=== PATIENT | male | born 1960 | race Caucasian/White ===

== ENCOUNTER 2016-12-31 17:30 | Emergency (ER) | payer MEDICARE, MEDICAID ==
[~2016-12-31] VITALS: Ht 182.9 cm; Wt 81.6 kg
[2016-12-31 19:28] VITALS: BP 141/115
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
--- OUTSIDE RECORDS SUMMARY | 2017-01-09 09:08 | External Medical Summary Rpt | CCD ---
Author Author , HERNANDO VILLAGOMEZ Address Unknown Phone [email or web address] Care Team Providers Care Perforator Typist Name Role Phone AUSTYN AND, Unavailable Unavailable KAMILA ARANA, Unavailable Unavailable KAMILA KENT JR. DAN, Unavailable Unavailable JR. SAIDA KENT [facility] Unavailable Unavailable MEDICINE, [facility] MED[facility] Unavailable Unavailable & INTER, [facility] & INTER [facility] Unavailable Unavailable MEDICAL CENT[facility], [facility], Unavailable Unavailable [facility] Unavailable Unavailable HOSPITA, [facility] CHA GORDILLO, CHA Unavailable Unavailable DUY CHA GORDILLO, CHA Unavailable Unavailable DUY CABRAL, CAROL Unavailable Unavailable JR CABRAL [facility] SRI, Unavailable Unavailable [facility] SRI [facility], [facility] Unavailable Unavailable [facility] Un[facility] Unavailable Unavailable SERVICES, [facility], Unavailable Unavailable [facility], Unavailable Unavailable [facility] Purpose Continuity of Care Document - 09-15-2007 through 2016 Problems Code Diagnosis DOS Provider Status 4019 UNSPECIFIED 01-29-2013 [facility] HYPERTENSIO SERVICES N 6826 CELLULITIS 01-29-2013 [facility] AND ABSCESS EMERGENCY OF LEG SERVICES EXCEPT FOOT 8910 OPEN WOUND 01-29-2013 [facility] KNEE EMERGENCY LEG&ANK SERVICES WITHOUT MENTION COMP V5832 ENCOUNTER 01-29-2013 [facility] FOR REMOVAL EMERGENCY OF SUTURES SERVICES 91716 TRAUMATIC 06-30-2012 [facility]THROPATHY SERV , FOREARM [facility]OUND[facility] 14230 EFFUSION OF 06-30-[address] [facility] EMERGENCY ROOM JOINT 46748 UNSPECIFIED 06-30-2012 [facility] ENTHESOPATH [facility] Y OF ELBOW V5489 OTHER 06-30-2012 [facility] AFTERCARE 3542 LESION OF 06-18-2012 [facility] ULNAR NERVE SERV [facility] 11173 UNSPECIFIED 06-18-2012 [facility] ARTHROPATHY , UPPER ARM 98579 LOOSE BODY 06-18-2012 [place] [facility] [place] UPPER SERV ARM JOINT [facility] 07796 STIFFNESS 06-18-2012 [facility] NEC UPPER ARM 46466 OTHER 06-18-2012 [place] [facility] SYNOVITIS SERV AND FOUNDATIO TENOSYNOVIT IS 4011 ESSENTIAL 06-05-2012 [facility] HYPERTENSIO INTERNAL N, BENIGN MEDICINE V7284 UNSPECIFIED 06-05-2012 [facility] PRE-OPERATI MEDICINE VE EXAMINATION 7296 RESIDUAL 05-05-2012 [facility] KESSLERS FOREIGN BODY IN SOFT TISSUE 7242 LUMBAGO 04-28-2012 [facility] MEDICINE 27717 LOC 12-23-2011 [facility] S NOT SPEC PRIM/SEC UPPER ARM 7295 PAIN IN 12-23-2011 [facility] TISSUES OF LIMB 87469 DISORDER OF 12-23-2011 [facility] BONE AND SERV CARTILAGE [facility]OUND[facility] UNSPECIFIED 93123 PAIN IN 11-26-2011 [facility] JOINT, RADIOLOGY UPPER ARM 87358 PAIN IN 11-26-2011 [facility] OTHER COMMUNITY SPECIFIED HOSPITA SITES V816 SCREENING 11-26-2011 [facility] OTHER&UNSPE PEDIATRICS C & INTER GENITOURINA RY CONDITION 61949 UNSPECIFIED 11-19-2011 [facility] SENSORINEUR AL HEARING LOSS 97065 HEAD 11-19-2011 [facility] UNSPECIFIED Procedures Procedure DOS Code Location Performer Comment SUSCEPTIB 72182 CYDNEY LAMAS LTY STDY 3 REGIONAL REGIONAL [facility]TIMICRB [facility] MICRO/AGA R DILUTJ SMR PRIM 27833 [facility] LAMAS SRC 3 REGIONAL REGIONAL GRAM/GIEM MEDICAL MEDICAL SA STAIN CENTE JUSTEN BCT FUNGI/AMI L CUL BACT 42284 CYDNEY LAMAS XCPT 3 REGIONAL [facility] URINE MEDICAL MEDICAL BLOOD/STO CENTCurly CAMPUZANO OL AEROBIC ISOL CUL BACT 85768 CYDNEY LAMAS AEROBIC 3 REGIONAL REGIONAL ADDL MEDICAL MEDICAL METHS CENTE JUSTEN DEFINITIV E EA ISOL RADIOLOGI 38683 [facility] [place] PAKO C 3 RADIOLOGY DINO EXAMINATI ON TIBIA & FIBULA 2 VIEWS RADEX 82383 [facility] Y [facility] MINIMUM 3 VIEWS NEUROPLAS 95443 [place] KAMINENI TY 3 MEDICAL SRI &/TRANSPO SERV SITION FOUNDATIO ULNAR NERVE ELBOW INJECTION J2405 [facility] 3 Y [facility] HCL PER 1 MG PARTIAL 04321 [facility] EXCISION 3 Y Y BONE [facility] OLECRANON PROCESS INJECTION J0360 [facility] 3 Y Y HYDRALAZI [facility] NE HCL UP TO 20 MG INJECTION J0690 [facility] 3 Y Y CEFAZOLIN [facility] SODIUM 500 MG INJECTION J2250 [facility] 3 Y Y MIDAZOLAM [facility] HCL PER 1 MG PARTIAL 89070 [facility] EXCISION 3 Y Y BONE [facility] HUMERUS INJECTION J1170 [facility] 3 Y Y HYDROMORP [facility] MYRNA UP TO 4 MG RINGERS J7120 [facility] LACTATE 3 Y Y INFUSION [facility] UP TO 1000 CC EXCISION 11417 [facility] RADIAL 3 Y Y HEAD [facility] ARTHROSCO 71269 [facility] ELBOW 3 Y Y SURGICAL [facility] W/REMOVAL LOOSE/FB ARTHROSCO 47784 [facility] ELBOW 3 Y Y SURGICAL [facility] DEBRIDEME NT EXTENSIVE INJECTION J2710 [facility] 3 Y Y NEOSTIGMI [facility] NE METHYLSUL FATE UP TO 0.5 MG INJECTION J3010 [facility] FENTANYL 3 Y Y CITRATE [facility] 0.1 MG INFUSION J7030 [facility] NORMAL 3 Y Y SALINE [facility] SOLUTION 1000 CC ECG 70576 KBSONJA BEITING, ROUTINE 3 INTERNAL JR. SAIDA ECG MEDICINE W/LEAST 12 LDS W/I&R ECG 87495 [place] DAISY CH[facility] ROUTINE 2 MEDICAL ECG SERV W/LEAST FOUNDATIO 12 LDS I&R ONLY RADEX 12509 [facility] ELBOW 2 Y Y COMPLETE [facility] MINIMUM 3 VIEWS COLLECTIO 62914 COLE MOOREAU N VENOUS 2 AND BLOOD PEDIATRIC VENIPUNCT S & INTER URE RADEX 79819 [facility] ELBOW 2 N N [facility] MINIMUM 3 HOSPITA HOSPITA VIEWS ECG 60958 COLE ZAMAN ROUTINE 2 AND ECG PEDIATRIC W/LEAST S & INTER 12 LDS W/I&R COMPRE 46067 [facility] AUDIOMETR 2 Y Y Y [facility] THRESHOLD EVAL SP RECOGNIJ TYMPANOME 90341 [facility] TRY 2 Y Y HOSPITAL HOSPITAL Encounters Encounter Start End Date Code Location Performer Type Date EMERGENCY 55573 CY[facility]NEY 3 3 [facility] T [facility]ISIT [facility] CYDNEY - 3 3 [facility] [address] [facility] UN[facility]ERSIT - 3 3 Y [facility] T OFFICE 86043 COLE KENT OUTPATIEN 3 3 INTERNAL JR. SAIDA T VISIT MEDICINE 15 MINUTES OFFICE 16948 [facility] EUBANKS OUTPATIEN 3 3 DUYChad GORDILLO T NEW 30 MINUTES OFFICE 34312 COLE KENT, OUTPATIEN 3 3 INTERNAL JR. SAIDA T VISIT MEDICINE 25 MINUTES [facility] [address] [facility] [place] [address] 2 N [facility] HOSPITA OFFICE 26344 COLE ZAMAN OUTPATIEN 2 2 AND T NEW 30 PEDIATRIC MINUTES S & INTER HOSPITAL UNIVERSIT - 2 2 Y [facility] T OFFICE 73282 RONALD MEDINA JR OUTPATIEN 2 2 MEDICAL RAL T NEW 30 SERV MINUTES [facility] N OFFICE 81625 [facility] BE[facility], OUTPATIEN 8 8 INTERNAL KAMILA Vizcaino T VISIT MEDICINE 15 GROUP MINUTES [facility] OFFICE 67071 BLUESONJA BEITING, OUTPATIEN 8 8 INTERNAL KAMILA Vizcaino T VISIT MEDICINE 15 GROUP MINUTES [facility]
--- OUTSIDE RECORDS SUMMARY | 2017-01-09 09:08 | External Medical Summary Rpt | CCD ---
Author Author , HERNANDO VILLAGOMEZ Address Unknown Phone [email or web address] Care Team Providers Care Adult Basic Education Instructor Name Role Phone AUSTYN AND, Unavailable Unavailable KAMILA ARANA, Unavailable Unavailable KAMILA KENT JR. DAN, Unavailable Unavailable JR. SAIDA KENT [facility] Unavailable Unavailable MEDICINE, [facility] INTER[facility] MEDICINE [facility] Unavailable Unavailable & INTER, [facility] & INTER [facility] Unavailable Unavailable [facility]ICAL CENT[facility], [facility], Unavailable Unavailable [facility] Unavailable Unavailable HOSPITA, [facility] CHA GORDILLO, CHA Unavailable Unavailable DUY CHA GORDILLO, CHA Unavailable Unavailable DUY CABRAL, CAROL Unavailable Unavailable JR CABRAL KAMINEULICES SRI, Unavailable Unavailable KAMINEULICES SRI [facility]Y [facility], [facility] Unavailable [facility]available [facility] Un[facility] Unavailable [facility]available SERVICES, [facility], Unavailable Unavailable [facility], Unavailable Unavailable [facility] Purpose Continuity of Care Document - 09-15-2007 through 2016 Problems Code Diagnosis DOS Provider Status 4019 UNSPECIFIED 01-29-2013 [facility] HYPERTENSIO SERVICES N 6826 CELLULITIS 01-29-2013 [facility] AND ABSCESS EMERGENCY OF LEG SERVICES EXCEPT FOOT 8910 OPEN WOUND 01-29-2013 [facility] KNEE [facility]ERGENCY LEG&ANK SERVICES WITHOUT MENTION COMP V5832 ENCOUNTER 01-29-2013 [facility] FOR REMOVAL EMERGENCY OF SUTURES SERVICES 26740 TRAUMATIC 06-30-2012 [place] MEDICAL ARTHROPATHY SERV , FOREARM FOUNDATIO 16913 EFFUSION OF 06-30-2012 [facility] JOINT 85354 UNSPECIFIED 06-30-2012 [place] [facility] SERV ENTHESOPATH FOUNDAT[facility] Y OF ELBOW V5489 OTHER 06-30-2012 [facility] AFTERCARE 3542 LESION OF 06-18-2012 [place] [facility]ICAL ULNAR NERVE SERV [facility]OUND[facility] 31017 UNSPECIFIED 06-18-2012 [facility] ARTHROPATHY , UPPER ARM 31893 LOOSE BODY 06-18-2012 [place] [facility] [place] UPPER SERV ARM JOINT [facility]OUNDAT[facility] 13226 STIFFNESS 06-18-2012 [facility] NEC UPPER ARM 97572 OTHER 06-18-2012 [place] [facility] SYNOVITIS SERV AND FOUNDATIO TENOSYNOVIT IS 4011 ESSENTIAL 06-05-2012 [facility] HYPERTENSIO INTERNAL N, BENIGN MEDICINE V7284 UNSPECIFIED 06-05-2012 [facility] INTERNAL PRE-OPERATI MEDICINE VE EXAMINATION 7296 RESIDUAL 05-05-2012 [facility] KESSLERS FOREIGN BODY IN SOFT TISSUE 7242 LUMBAGO 04-28-2012 [facility] INTERNAL MEDICINE 57651 LOC 12-23-2011 [place] [facility] S NOT SPEC PRIM/SEC UPPER ARM 7295 PAIN IN 12-23-2011 [facility] TISSUES OF LIMB 58424 DISORDER OF 12-23-2011 [place] MEDICAL BONE AND SERV CARTILAGE [facility]OUND[facility] UNSPECIFIED 05931 PAIN IN 11-26-2011 [facility] [place] JOINT, RADIOLOGY UPPER ARM 85877 PAIN IN 11-26-2011 [place] JOINT OTHER COMMUNITY SPECIFIED HOSPITA SITES V816 SCREENING 11-26-2011 [facility] OTHER&UNSPE PEDIATRICS C & INTER GENITOURINA RY CONDITION 88528 UNSPECIFIED 11-19-2011 [facility] SENSORINEUR AL HEARING LOSS 18228 HEAD 11-19-2011 [place] [facility], [facility] UNSPECIFIED Procedures Procedure DOS Code Location Performer Comment SUSCEPTIB 92703 CYDNEY LAMAS LTY STDY 3 REGIONAL REGIONAL ANTIMICRB [facility] CAM[facility] MICRO/AGA R DILUTJ SMR PRIM 96041 CYDNEY LAMAS SRC 3 REGIONAL REGIONAL GRAM/GIEM MEDICAL MEDICAL SA STAIN CENTE JUSTEN BCT FUNGI/AMI L CUL BACT 81063 CYDNEY LAMAS XCPT 3 REGIONAL [facility] URINE MEDICAL MEDICAL BLOOD/STO CENTCurly CAMPUZANO OL AEROBIC ISOL CUL BACT 63643 CYDNEY LAMAS AEROBIC 3 REGIONAL REGIONAL ADDL MEDICAL MEDICAL METHS CENTE JUSTEN DEFINITIV E EA ISOL RADIOLOGI 35865 [facility] [place] PAKO C 3 RADIOLOGY DINO EXAMINATI ON TIBIA & FIBULA 2 VIEWS RADEX 75816 [facility] MINIMUM 3 VIEWS NEUROPLAS 85873 [place] KAMINENI TY 3 MEDICAL SRI &/TRANSPO SERV SITION FOUNDATIO ULNAR NERVE ELBOW INJECTION J2405 [facility] 3 Y [facility] ON HCL PER 1 MG PARTIAL 82761 [facility] EXCISION 3 Y Y BONE [facility] OLECRANON PROCESS INJECTION J0360 [facility] 3 Y Y HYDRALAZI [facility] NE HCL UP TO 20 MG INJECTION J0690 [facility] 3 Y Y CEFAZOLIN [facility] SODIUM 500 MG INJECTION J2250 [facility] 3 Y Y MIDAZOLAM [facility] HCL PER 1 MG PARTIAL 52318 [facility] EXCISION 3 Y Y BONE [facility] HUMERUS INJECTION J1170 [facility] 3 Y Y HYDROMORP [facility] MYRNA UP TO 4 MG RINGERS J7120 [facility] LACTATE 3 Y Y INFUSION [facility] UP TO 1000 CC EXCISION 46270 [facility] RADIAL 3 Y Y HEAD [facility]OSPITAL ARTHROSCO 48534 [facility] ELBOW 3 Y Y SURGICAL [facility] W/REMOVAL LOOSE/FB ARTHROSCO 93909 [facility] EL[place]OW 3 Y Y SURGICAL [facility] DEBRIDEME NT EXTENSIVE INJECTION J2710 [facility] 3 Y Y NEOSTIGMI [facility] NE METHYLSUL FATE UP TO 0.5 MG INJECTION J3010 [facility] FENTANYL 3 Y Y CITRATE [facility] 0.1 MG INFUSION J7030 [facility] NORMAL 3 Y Y SALINE [facility] SOLUTION 1000 CC ECG 16352 KBSONJA BEITING, ROUTINE 3 INTERNAL JR. SAIDA ECG MEDICINE W/LEAST 12 LDS W/I&R ECG 41948 [place] DAISY CHI ROUTINE 2 MEDICAL ECG SERV W/LEAST FOUNDATIO 12 LDS I&R ONLY RADEX 60865 [facility] ELBOW 2 Y Y COMPLETE [facility] MINIMUM 3 VIEWS COLLECTIO 43442 [facility] MOOREAU N VENOUS 2 AND BLOOD PEDIATRIC VENIPUNCT S & INTER URE RADEX 83949 [facility] ELBOW 2 N N [facility] MINIMUM 3 HOSPITA HOSPITA VIEWS ECG 17782 COLE ZAMAN ROUTINE 2 AND ECG PEDIATRIC W/LEAST S & INTER 12 LDS W/I&R COMPRE 14814 [facility] AUDIOMETR 2 Y Y Y [facility] HOSPITAL THRESHOLD EVAL SP RECOGNIJ TYMPANOME 05514 [facility] TRY 2 Y Y HOSPITAL HOSPITAL Encounters Encounter Start End Date Code Location Performer Type Date EMERGENCY 23586 [facility] 3 3 [facility] T VISIT [facility] CYDNEY - 3 3 [facility] T [facility] 3 3 Y [facility] UNIVERSIT - 3 3 Y [facility] T OFFICE 45535 COLE KENT OUTPATIEN 3 3 INTERNAL JR. SAIDA T VISIT MEDICINE 15 MINUTES OFFICE 69924 [facility] EUBANKS OUTPATIEN 3 3 DUYChad GORDILLO T NEW 30 MINUTES OFFICE 43763 COLE KENT, OUTPATIEN 3 3 INTERNAL JR. SAIDA T VISIT MEDICINE 25 MINUTES [facility] UN[facility]ERSIT - 2 2 Y [facility] [place] [address] 2 N [facility] HOSPITA OFFICE 16647 COLE ZAMAN OUTPATIEN 2 2 AND T NEW 30 PEDIATRIC MINUTES S & INTER [facility]OSPITAL UNIVERSIT - 2 2 Y [facility] T OFFICE 34363 RONALD MEDINA JR OUTPATIEN 2 2 MEDICAL RAL T NEW 30 SERV MINUTES [facility] N OFFICE 84630 BLUESONJA BEITING, OUTPATIEN 8 8 INTERNAL KAMILA Vizcaino T VISIT MEDICINE 15 GROUP MINUTES [facility] OFFICE 49604 BLUESONJA BEITING, OUTPATIEN 8 8 INTERNAL KAMILA Vizcaino T VISIT MEDICINE 15 GROUP MINUTES [facility]
--- OUTSIDE RECORDS SUMMARY | 2017-01-09 09:09 | External Medical Summary Rpt ---
Author Author HERNANDO Shah, [employer] Address Unknown Phone Unavailable Results Ethanol [Mass/volume] in Serum or Plasma Observa Value Referen Units Interpr Notes Date tion ce etation Range Ethanol 0 - 99 mg/dL High ANY Dec 31 [Mass/vol ALCOHOL > 2017 6:19 ume] in OR = 80 PM Serum or MG/DL IS Plasma CONSIDERE D LEGALLYIN TOXICATED [place]ER [place] LAW.
--- OUTSIDE RECORDS SUMMARY | 2017-01-09 09:09 | External Medical Summary Rpt | CCD ---
Author Author , HERNANDO VILLAGOMEZ Address Unknown Phone [email or web address] Care Team Providers Care Wire Inserter Name Role Phone KRYSTIANLENKA AND, Unavailable Unavailable SUMIT CINTRON, Unavailable Unavailable KAMILA FERNÁNDEZ JR., Unavailable Unavailable KAMILA KENT JR. DAN, Unavailable Unavailable JR. SAIDA KENT ISABELLA KHUSHBOO, Unavailable Unavailable ISABELLA KHUSHBOO [facility] Unavailable Unavailable MEDICINE, [facility] MEDICINE [facility] Unavailable Unavailable & INTER, [facility] & INTER [facility] Unavailable Unavailable MEDICAL CENTE, [facility], Unavailable Unavailable [facility] ANIRUDH DALLAS, ANIRUDH DALLAS Unavailable Unavailable [facility] Unavailable Unavailable HOSPITA, [facility] EUBANKS DUY, EUBANKS Unavailable Unavailable DUY EUBANKS DUY, EUBANKS Unavailable Unavailable DUY CAROL CABRAL, CAROL Unavailable Unavailable JR RAL KAMINENI SRI, Unavailable Unavailable KAMINENI SRI [facility], [facility] Un[facility] Unavailable Unavailable SERVICES, [facility], Unavailable Unavailable [facility], Unavailable Unavailable [facility] JAYDA MAT, JAYDA MAT Unavailable Unavailable Purpose Continuity of Care Document - 09-15-2007 through 2016 Problems Code Diagnosis DOS Provider Status 4019 UNSPECIFIED 01-29-2013 [facility] HYPERTENSIO SERVICES N 6826 CELLULITIS 01-29-2013 [facility] AND ABSCESS EMERGENCY OF LEG SERVICES EXCEPT FOOT 8910 OPEN WOUND 01-29-2013 [facility] KNEE [facility]ERGENCY LEG&ANK SERVICES WITHOUT MENTION COMP V5832 ENCOUNTER 01-29-2013 [facility] FOR REMOVAL EMERGENCY OF SUTURES SERVICES 69906 TRAUMATIC 06-30-2012 [facility] , FOREARM FOUNDAT[facility] 32572 EFFUSION OF 06-30-2012 [facility] JOINT 40516 UNSPECIFIED 06-30-2012 [facility] ENTHESOPATH [facility] Y OF ELBOW V5489 OTHER 06-30-2012 [facility] AFTERCARE 3542 LESION OF 06-18-2012 [facility] UL[facility]AR NERVE SERV [facility] 79944 UNSPECIFIED 06-18-2012 [facility] ARTHROPATHY , UPPER ARM 53242 LOOSE BODY 06-18-2012 [facility] UPPER SERV ARM JOINT FOUNDAT[facility] 28249 STIFFNESS 06-18-2012 [facility] NEC UPPER ARM 98088 OTHER 06-18-2012 [facility] SYNOVITIS SERV AND [facility]IO TENOSYNOVIT IS 4011 ESSENTIAL 06-05-2012 [facility] HYPERTENSIO INTERNAL N, BENIGN MEDICINE V7284 UNSPECIFIED 06-05-2012 [facility] INTER[facility] PRE-OPERATI MEDICINE VE EXAMINATION 7296 RESIDUAL 05-05-2012 EUBANKS DUY FOREIGN BODY IN SOFT TISSUE 7242 LUMBAGO 04-28-2012 [facility] INTERNAL MEDICINE 96905 LOC 12-23-2011 [facility] S NOT SPEC PRIM/SEC UPPER ARM 7295 PAIN IN 12-23-2011 [facility] TISSUES OF LIMB 88296 DISORDER OF 12-23-2011 [place] [facility] AND [facility] CARTILAGE [facility] UNSPECIFIED 50555 PAIN IN 11-26-2011 [facility] [place] JOINT, RADIOLOGY UPPER ARM 97483 PAIN IN 11-26-2011 [place] JOINT OTHER COMMUNITY SPECIFIED HOSPITA SITES V816 SCREENING 11-26-2011 [facility] OTHER&UNSPE PEDIATRICS C & INTER GENITOURINA RY CONDITION 43437 UNSPECIFIED 11-19-2011 [facility] SENSORINEUR AL HEARING LOSS 51329 HEAD 11-19-2011 [facility], [facility] UNSPECIFIED Procedures Procedure DOS Code Location Performer Comment CUL BACT 64689 CYDNEY LAMAS XCPT 3 REGIONAL REGIONAL URINE MEDICAL MEDICAL BLOOD/STO JUSTEN CAMPUZANO OL AEROBIC ISOL CUL BACT 28693 CYDNEY LAMAS AEROBIC 3 REGIONAL REGIONAL ADDL MEDICAL MEDICAL METHS JUSTEN CAMPUZANO DEFINITIV E EA ISOL SUSCEPTIB 43599 CYDNEY LAMAS LTY STDY 3 REGIONAL REGIONAL ANTIMICRB MEDICAL MEDICAL IAL JUSTEN CAMPUZANO MICRO/AGA R DILUTJ SMR PRIM 70983 CYDNEY LAMAS SRC 3 REGIONAL REGIONAL GRAM/GIEM MEDICAL MEDICAL SA STAIN JUSTEN CAMPUZANO BCT FUNGI/AMI L RADIOLOGI 54233 [facility] [place] MCQUAIDE C 3 RADIOLOGY DINO EXAMINATI ON TIBIA & FIBULA 2 VIEWS RADEX 64713 [place] ISABELLA EL[place]OW 3 MEDICAL KHUSHBOO COMPLETE SERV MINIMUM 3 FOUNDATIO VIEWS INJECTION J2405 [facility] 3 Y [facility] [place] ON HCL PER 1 MG ARTHROSCO 10474 RONALD MORRISON PY ELBOW 3 MEDICAL SRI SURGICAL SERV W/REMOVAL FOUNDATIO LOOSE/FB ARTHROSCO 53350 RONALD MORRISON PY ELB[place] 3 MEDICAL SRI SURGICAL SERV DEBRIDEME FOUNDATIO NT EXTENSIVE NEUROPLAS 83229 RONALD MORRISON TY 3 MEDICAL SRI &/TRANSPO SERV SITION FOUNDATIO ULNAR NERVE [place] PARTIAL 77647 [facility] EXCISION 3 Y Y BONE [facility] OLECRANON PROCESS INJECTION J2710 [facility] 3 Y Y NEOSTIGMI [facility] NE METHYLSUL FATE UP TO 0.5 MG INJECTION J3010 [facility] FENTANYL 3 Y Y CITRATE [facility] 0.1 MG INFUSION J7030 [facility] NORMAL 3 Y Y SALINE [facility] SOLUTION 1000 CC EXCISION 63144 RONALD MORRISON RADIAL 3 MEDICAL SRI HEAD SERV FOUNDATIO INJECTION J1170 [facility] 3 Y Y HYDROMORP [facility] MYRNA UP TO 4 MG RINGERS J7120 [facility] LACTATE 3 Y Y INFUSION [facility] UP TO 1000 CC INJECTION J0360 [facility] 3 Y Y HYDRALAZI [facility] NE HCL UP TO 20 MG INJECTION J0690 [facility] 3 Y Y CEFAZOLIN [facility] SODIUM 500 MG INJECTION J2250 [facility] 3 Y Y MIDAZOLAM [facility] HCL PER 1 MG PARTIAL 10132 [facility] EXCISION 3 Y Y BONE [facility] HOSPITAL HUMERUS ECG 45080 BEITING BEITING ROUTINE 3 JR. SAIDA CINTRON ECG W/LEAST 12 LDS W/I&R ECG 92642 RONALD DAISY JIMENEZ ROUTINE 2 MEDICAL ECG SERV W/LEAST FOUNDATIO 12 LDS I&R ONLY RADEX 60276 [facility] ELBOW 2 Y Y COMPLETE HOSPITAL HOSPITAL MINIMUM 3 VIEWS COLLECTIO 24937 KBSONJA ZAMAN N VENOUS 2 AND BLOOD PEDIATRIC VENIPUNCT S & INTER URE RADEX 67607 [facility] [place] JAYDA MAT EL[place]OW 2 RADIOLOGY COMPLETE MINIMUM 3 VIEWS ECG 93569 COLE ZAMAN ROUTINE 2 AND ECG PEDIATRIC W/LEAST S & INTER 12 LDS W/I&R COMPRE 45355 [facility] AUDIOMETR 2 Y Y Y [facility] THRESHOLD EVAL SP RECOGNIJ TYMPANOME 22233 [facility] TRY 2 Y Y HOSPITAL HOSPITAL Encounters Encounter Start End Date Code Location Performer Type Date [facility] CYDNEY - 3 3 [facility]AL [facility] EMERGENCY 04144 CHRISTINE HAYNES 3 3 EMERGENCY DEPARTMEN SERVICES T VISIT [facility] UNIVERSIT - 3 3 Y [facility] AZLE - 3 3 Y [facility] T OFFICE 95211 FLOR LIN 3 3 INTERNAL JR. SAIDA T VISIT MEDICINE 15 MINUTES OFFICE 76035 [facility]KS [facility] 3 3 DUY DUY T NEW 30 MINUTES OFFICE 53612 [facility] INTERNAL JR. SAIDA T VISIT MEDICINE 25 MINUTES [facility] UNIVERSIT - 2 2 Y [facility] T OFFICE 87522 COLE ZAMAN [facility] 2 2 AND T NEW 30 PEDIATRIC MINUTES S & INTER [facility] [place] [address] [facility] UNIVERS[facility] - 2 2 Y [facility] T OFFICE 56863 RONALD MEDINA [facility] 2 MEDICAL RAL T NEW 30 SERV MINUTES FOUNDATIO N OFFICE 27253 CO[facility] KENT OUTEBONY 8 8 INTERNAL KAMILA Vizcaino T VISIT MEDICINE 15 GROUP MINUTES [facility] OFFICE 63339 COLE [place], OUTEBONY 8 8 INTERNAL KAMILA Guerrero VISIT MEDICINE 15 GROUP MINUTES [facility]
--- OUTSIDE RECORDS SUMMARY | 2017-01-09 09:09 | External Medical Summary Rpt ---
[...] IS Plasma CONSIDERE D LEGALLYIN TOXICATED [place]ER [place] LAW.
--- OUTSIDE RECORDS SUMMARY | 2017-01-09 09:09 | External Medical Summary Rpt | CCD ---
Demographics Preferred Language Guinean Marital Status Unknown Restorationist Affiliation Unknown Race Unknown Ethnic Group Unknown Author Author , KASSIDY VILLAGOMEZ Address Unknown Phone Immunization Unable to retrieve immunization data due to connection failure with Immunization Registry. Please try again later.
--- OUTSIDE RECORDS SUMMARY | 2017-01-09 09:09 | External Medical Summary Rpt | CCD ---
Demographics Preferred Language Welsh Marital Status Unknown Tenriism Affiliation Unknown Race Unknown Ethnic Group Unknown Author Author , KASSIDY VILLAGOMEZ Address Unknown Phone Immunization Unable to retrieve immunization data due to connection failure with Immunization Registry. Please try again later.
--- OUTSIDE RECORDS SUMMARY | 2017-01-09 09:09 | External Medical Summary Rpt | CCD ---
Author Author , HERNANDO VILLAGOMEZ Address Unknown Phone [email or web address] Care Team Providers Care Necktie Centralizing Machine Operator Name Role Phone RKYSTIANLENKA AND, Unavailable Unavailable SUMIT CINTRON, Unavailable Unavailable KAMILA FERNÁNDEZ JR., Unavailable Unavailable KAMILA KENT JR. DAN, Unavailable Unavailable JR. SAIDA KENT ISABELLA KHUSHBOO, Unavailable Unavailable ISABELLA KHUSHBOO [facility] INTERNAL Unavailable Unavailable MEDICINE, [facility] INTERNAL MEDICINE [facility] Unavailable Unavailable & INTER, [facility] & INTER [facility] Unavailable Unavailable MEDICAL CENTE, [facility], Unavailable Unavailable [facility] ANIRUDH DALLAS, ANIRUDH DALLAS Unavailable Unavailable [facility] Unavailable Unavailable HOSPITA, [facility] EUBANKS DUY, EUBANKS Unavailable Unavailable DUY EUBANKS DUY, EUBANKS Unavailable Unavailable DUY CAROL CABRAL, CAROL Unavailable Unavailable JR RAL KAMINENI SRI, Unavailable Unavailable KAMINENI SRI [facility], [facility] Un[facility] Unavailable Unavailable SERVICES, [facility], [facility]available Unavailable [facility], Unavailable Unavailable [facility] JAYDA MAT, JAYDA MAT Unavailable Unavailable Purpose Continuity of Care Document - 09-15-2007 through 2016 Problems Code Diagnosis DOS Provider Status 4019 UNSPECIFIED 01-29-2013 [facility] HYPERTENSIO SERVICES N 6826 CELLULITIS 01-29-2013 [place] AND ABSCESS EMERGENCY OF LEG SERVICES EXCEPT FOOT 8910 OPEN WOUND 01-29-2013 [place] KNEE EMERGENCY LEG&ANK SERVICES WITHOUT MENTION COMP V5832 ENCOUNTER 01-29-2013 [place] FOR REMOVAL EMERGENCY OF SUTURES SERVICES 81400 TRAUMATIC 06-30-2012 [facility] ARTHROPATHY SERV , FOREARM FOUNDATIO 36572 EFFUSION OF 06-30-2012 [facility] JOINT 88486 UNSPECIFIED 06-30-2012 [facility] ENTHESOPATH FOUNDATIO Y OF ELBOW V5489 OTHER 06-30-2012 [facility] AFTERCARE 3542 LESION OF 06-18-2012 [facility] ULNAR NERVE SERV FOUNDATIO 46863 UNSPECIFIED 06-18-2012 [facility] ARTHROPATHY , UPPER ARM 68198 LOOSE BODY 06-18-2012 [place] [facility] UPPER SERV ARM JOINT FOUNDAT[facility] 88816 STIFFNESS 06-18-2012 [facility] NEC UPPER ARM 04724 OTHER 06-18-2012 [place] [facility] SYNOVITIS SERV AND FOUNDATIO TENOSYNOVIT IS 4011 ESSENTIAL 06-05-2012 [facility] HYPERTENSIO INTERNAL N, BENIGN MEDICINE V7284 UNSPECIFIED 06-05-2012 [facility] INTERNAL PRE-OPERATI MEDICINE VE EXAMINATION 7296 RESIDUAL 05-05-2012 EUBANKS DUY FOREIGN BODY IN SOFT TISSUE 7242 LUMBAGO 04-28-2012 [facility] INTERNAL MEDICINE 67009 LOC 12-23-2011 [facility] S NOT SPEC PRIM/SEC UPPER ARM 7295 PAIN IN 12-23-2011 [facility] TISSUES OF LIMB 25940 DISORDER OF 12-23-2011 [place] [facility] CARTILAGE [facility] UNSPECIFIED 04080 PAIN IN 11-26-2011 [facility] JOINT, RADIOLOGY UPPER ARM 45258 PAIN IN 11-26-2011 [place] JOINT OTHER COMMUNITY SPECIFIED HOSPITA SITES V816 SCREENING 11-26-2011 [facility] OTHER&UNSPE PEDIATRICS C & INTER GENITOURINA RY CONDITION 48864 UNSPECIFIED 11-19-2011 [facility] SENSORINEUR AL HEARING LOSS 54527 HEAD 11-19-2011 [place] [facility] UNSPECIFIED Procedures Procedure DOS Code Location Performer Comment CUL BACT 29250 CYDNEY LAMAS XCPT 3 REGIONAL REGIONAL URINE MEDICAL MEDICAL BLOOD/STO JUSTEN CAMPUZANO OL AEROBIC ISOL CUL BACT 56858 CYDNEY LAMAS AEROBIC 3 REGIONAL REGIONAL ADDL MEDICAL MEDICAL METHS JUSTEN CAMPUZANO DEFINITIV E EA ISOL SUSCEPTIB 32853 CYDNEY LAMAS LTY STDY 3 REGIONAL REGIONAL ANTIMICRB MEDICAL MEDICAL IAL JUSTEN CAMPUZANO MICRO/AGA R DILUTJ SMR PRIM 40972 CYDNEY LAMAS SRC 3 REGIONAL REGIONAL GRAM/GIEM MEDICAL MEDICAL SA STAIN JUSTEN CAMPUZANO BCT FUNGI/AMI L RADIOLOGI 14627 [facility] [place] [facility] C 3 RADIOLOGY DINO EXAMINATI ON TIBIA & FIBULA 2 VIEWS RADEX 22209 [place] ISABELL[facility] EL[place] 3 MEDICAL KHUSHBOO COMPLETE SERV MINIMUM 3 FOUNDATIO VIEWS INJECTION J2405 [facility] 3 Y [facility] [place] [facility] H[facility] PER 1 MG ARTHROSCO 01126 RONALD MORRISON PY ELBOW 3 MEDICAL SRI SURGICAL SERV W/REMOVAL FOUNDATIO LOOSE/FB ARTHROSCO 50088 RONALD MORRISON PY ELB[place] 3 MEDICAL SRI SURGICAL SERV DEBRIDEME FOUNDATIO NT EXTENSIVE NEUROPLAS 07719 RONALD MORRISON TY 3 MEDICAL SRI &/TRANSPO SERV SITION FOUNDATIO ULNAR NERVE ELBOW PARTIAL 53126 [facility] EXCISION [address] [facility] OLECRANON PROCESS INJECTION J2710 [facility] [address] [facility] NE METHYLSUL FATE UP TO 0.5 MG INJECTION J3010 [facility] FENTANYL [address] [facility] 0.1 MG INFUSION J7030 [facility] NORMAL [address] [facility] SOLUTION 1000 CC EXCISION 30930 RONALD MORRISON RADIAL 3 MEDICAL SRI HEAD SERV FOUNDATIO INJECTION J1170 [facility] [address] [facility] MYRNA UP TO 4 MG RINGERS J7120 [facility] LACTATE 3 Y Y INFUSION [facility]OSP[facility] UP TO 1000 CC INJECTION J0360 [facility] [address] [facility] NE HCL UP TO 20 MG INJECTION J0690 [facility] [address] [facility] SODIUM 500 MG INJECTION J2250 [facility] 3 Y Y MIDAZOLAM [facility] HOSPITAL HCL PER 1 MG PARTIAL 72510 [facility] EXCISION 3 Y Y BONE [facility] HOSPITAL HUMERUS ECG 68621 BEITING BEITING ROUTINE 3 JR. SAIDA CINTRON ECG W/LEAST 12 LDS W/I&R ECG 63449 RONALD DAISY JIMENEZ ROUTINE 2 MEDICAL ECG SERV W/LEAST FOUNDATIO 12 LDS I&R ONLY RADEX 90890 [facility] ELBOW 2 Y Y COMPLETE HOSPITAL HOSPITAL MINIMUM 3 VIEWS COLLECTIO 73557 KBSONJA ZAMAN N VENOUS 2 AND BLOOD PEDIATRIC VENIPUNCT S & INTER URE RADEX 43478 [facility] [place] JAYDA MAT EL[place]OW 2 RADIOLOGY COMPLETE MINIMUM 3 VIEWS ECG 32269 COLE ZAMAN ROUTINE 2 AND ECG PEDIATRIC W/LEAST S & INTER 12 LDS W/I&R COMPRE 43234 [facility] AUDIOMETR 2 Y Y Y [facility] HOSPITAL THRESHOLD EVAL SP RECOGNIJ TYMPANOME 74746 [facility] TRY 2 Y Y HOSPITAL HOSPITAL Encounters Encounter Start End Date Code Location Performer Type Date [facility] CYDNEY - 3 3 [facility] EMERGENCY 40203 CHRISTINE HAYNES 3 3 EMERGENCY DEPARTMEN SERVICES T VISIT [facility] UNIVERSIT - 3 3 Y [facility] - 3 3 Y [facility] T OFFICE 80981 FLOR LIN 3 3 INTERNAL JR. SAIDA T VISIT MEDICINE 15 MINUTES OFFICE 08263 [facility] EU[facility]KS [facility] 3 3 DUY DUY T NEW 30 MINUTES OFFICE 07617 COLE KENT [facility] 3 3 INTERNAL JR. SAIDA T VISIT MEDICINE 25 MINUTES [facility] UNIVERSIT - 2 2 Y [facility] T OFFICE 66359 COLE ZAMAN [facility] 2 2 AND T NEW 30 PEDIATRIC MINUTES S & INTER [facility] [place] [address] [facility] UNIVERSIT - 2 2 Y [facility] T OFFICE 89194 RONALD MEDINA [facility] 2 MEDICAL RAL T NEW 30 SERV MINUTES FOUNDATIO N OFFICE 68486 [facility] [place] OUTEBONY 8 8 INTERNAL KAMILA Vizcaino T VISIT MEDICINE 15 GROUP MINUTES [facility] OFFICE 49846 COLE KENT, OUTEBONY 8 8 INTERNAL KAMILA Guerrero VISIT MEDICINE 15 GROUP MINUTES [facility]
== END 2016-12-31 20:00 | disposition home or self-care (01) ==
LOC: ER 17:30
DX: F10.129 Alcohol abuse with intoxication, unspecified (principal); Y90.7 Blood alcohol level of 200-239 mg/100 ml; I10 Essential (primary) hypertension; F17.210 Nicotine dependence, cigarettes, uncomplicated